=== PATIENT | female | born 1970 | race Caucasian/White ===

== ENCOUNTER 2021-09-25 22:13 | Emergency (ER) | payer BC ==
[~2021-09-25] VITALS: Ht 152.4 cm; Wt 66.2 kg
[2021-09-25 22:13] VITALS: BP_SYST 126
--- NOTE | 2021-09-25 22:23 | NUR ---
Patient triaged and placed in waiting room. VSS and patient appears in no acute distress at this time. Accompanied by daughter, awaiting available bed, and MD notified of need for MSE.
[2021-09-26 00:09] LABS: BASOPHILS % (AUTO) 0.4 % (0.0-2.0); EOSINOPHILS % (AUTO) 0.3 % (0.0-4.0); HEMATOCRIT 42.4 % (36-48); HEMOGLOBIN 14.6 g/dL (12.0-16.0); LYMPHOCYTES # (AUTO) 1.5 K/uL (1.0-5.5); MEAN CORPUSCULAR HEMOGLOBIN 33 pg (27-31); MEAN CORPUSCULAR HGB CONC 35 % (32-36); MEAN CORPUSCULAR VOLUME 95 fL (79.0-98.0); MONOCYTES # (AUTO) 0.4 K/uL (0.0-1.0); MONOCYTES % (AUTO) 4.8 % (1.7-9.3); NEUTROPHILS # (AUTO) 5.4 K/uL (1.8-7.7); NEUTROPHILS % (AUTO) 73.5 % (40.0-70.0); PLATELET COUNT (AUTO) 234 K/uL (130-430); RED BLOOD CELL COUNT(AUTO) 4.45 MIL/uL (4.2-6.2); RED CELL DISTRIBUTION WIDTH 12.7 % (9.0-15.0); WHITE BLOOD COUNT (AUTO) 7.3 K/uL (4.8-10.8)
[2021-09-26 00:19] LABS: CREATININE 0.57 mg/dL (0.55-1.30); POTASSIUM 3.4 mmol/L (3.5-5.1)
--- NOTE | 2021-09-26 00:28 | NUR ---
Placed in room 6 . Placed on personnel monitor, blood pressure machine and pulse oximeter. To gown for exam. Side rails up. Report given to JOSHUA Oden
[2021-09-26 00:35] LABS: ALBUMIN 3.9 g/dL (3.4-4.8); TOTAL BILIRUBIN 0.3 mg/dL (0.0-1.0)
--- NOTE | 2021-09-26 02:39 | NUR ---
ER at bedside examining patient with satin finisher.
[2021-09-26] MEDS ORDERED: ANT30 PO (02:50)
[2021-09-26] MEDS ORDERED: DOCU-144 PO (02:50)
--- NOTE | 2021-09-26 03:18 | NUR ---
Ativan 1 mg PO given stat as verbal order by Dr. Mccullough.
[2021-09-26 03:23] VITALS: BP_SYST 120
--- NOTE | 2021-09-26 03:23 | NUR ---
Patient given written and verbal discharge instructions and verbalizes understanding. ER MD discussed with patient the results and treatment provided. Patient in stable condition. ID arm band removed. Rx of Mylanta and Docusate Sodium given. Patient educated on pain management and to follow up with PMD. Pain Scale 0/10. Opportunity for questions provided and answered. Medication side effect fact sheet provided.
[2021-09-26] MEDS ORDERED: LORazepam 1 MG TABLET ONE (03:27)
[2021-09-26] MEDS ORDERED: LORazepam 1 MG TABLET PO ONE (03:30)
== END 2021-09-26 03:23 | disposition home or self-care (01) ==
LOC: SED 22:13
DX: R06.00 Dyspnea, unspecified (principal); R14.0 Abdominal distension (gaseous); K21.9 Gastro-esophageal reflux disease without esophagitis; Z79.899 Other long term (current) drug therapy
CPT/HCPCS: 36415; 71045; 80053; 83880; 84484; 85025; 93005; 99285